=== PATIENT | male | born 1940 | race Caucasian/White ===

== ENCOUNTER 2021-06-07 14:54 | Emergency (ER) | payer MEDICARE ==
[~2021-06-07] VITALS: Ht 177.8 cm; Wt 100.2 kg
[2021-06-07 15:15] VITALS: BP 130/74
--- NOTE | 2021-06-07 16:05 | EKG ---
[address] [address] Test Date: 2021-06-07 Test Time: 15:57:25 Pat Name: JULY GOODWIN Department: Room: Gender: M Certified Pediatric Nurse Practitioner: DIONNA : 1940 Requested By: RACHEL MARQUES Order Number: [id number] Reading MD: Cam Villareal Measurements Intervals [place] Rate: 75 P: 52 VA: 160 QRS: -48 QRSD: 108 T: 44 QT: 398 QTc: 447 Interpretive Statements SINUS RHYTHM ABNORMAL LEFT AXIS DEVIATION LEFT ANTERIOR FASCICULAR BLOCK ABNORMAL ECG RI6.02 No previous ECG available for comparison Electronically Signed On 06-07-2021 16:17:22 [employer] CASE [employer] by Cam Villareal
--- NOTE | 2021-06-07 16:07 | PHYS DOC ---
Past History Past Surgical History: No Surgical History General Adult EDM: Chief Complaint: WEAKNESS/GENERALIZED HPI: HPI: Patient is a 80-year-old male brought in by EMS for altered mental status. Per patient's he is normally ANO x1. States she heard a noise at 2 AM and found him sitting in the bathroom and states he fell. Unknown if there is any head injury. Around 0930 and noticed some facial droop that has improved. Patient is in town from [place] states he has been a little bit more disoriented and fatigued. Review of Systems: Review of Systems: All other systems within normal limits except for as noted in the HPI Allergies: Allergies: Allergies Coded Allergies Type Severity Reaction Last Updated Verified No Known Drug Allergies 06/07/21 No Physical Exam: PE: Constitutional: Well developed, well nourished, no acute distress, non-toxic appearance. [] HENT: Normocephalic, atraumatic, bilateral external ears normal, nose normal. [] Eyes: PERRLA, conjunctiva normal, no discharge. [] Neck: No rigidity, supple, no stridor. [] Cardiovascular: Regular rate and rhythm, brisk cap refill [] Lungs & Thorax: Non labored symmetric respirations, no tachypnea or respiratory distress [] Abdomen: Soft, nondistended. Skin: Warm, dry, no erythema, no rash. [] Back: Unremarkable Extremities: No deformities, range of motion grossly intact, no lower extremity edema [] Neurologic: Alert and oriented X 3, no focal deficits noted. [] Psychologic: Affect normal, judgement normal, mood normal. [] Current Patient Data: Vital Signs: Vital Signs Date Time Temp Pulse Resp B/P (MAP) Pulse Ox O2 Delivery O2 Flow Rate FiO2 06/07/21 15:15 98.6 65 16 130/74 (92) 95 EKG: EKG: [] Radiology/Procedures: Radiology/Procedures: [address] [address] IMAGING REPORT Signed PATIENT: JULY GOODWIN ACCOUNT: [id number] : 1940 LOCATION: ER AGE: 80 SEX: M EXAM STATUS: REG ER ORD. PHYSICIAN: RACHEL MARQUES MD REASON: FALL, HIT HEAD, CONFUSED, DROOPING ON LEFT SIDE OF FACE PROCEDURE: CT HEAD WO CONTRAST CT head without contrast: Reason for examination: Fell and hit head. Confusion. Drooping on left side of face. Helical images were obtained through the brain with no contrast administered. Reconstruction was performed in sagittal and coronal planes. Exposure: One or more of the following individualized dose reduction techniques were utilized for this examination: 1. Automated exposure control 2. Adjustment of the mA and/or kV according to patient size 3. Use of iterative reconstruction technique. Ventricular systems are prominent but symmetric and consistent with patient's advanced age and generalized cerebral atrophy. There are patchy deep white matter changes in the frontal and parietal lobes consistent with microvascular ischemic change. There is no evidence of acute hemorrhage, infarct, mass or edema. Note is made of some calcification along the falx. No abnormalities of seen at the orbits. The paranasal sinuses and mastoid air cells are clear. No acute abnormality seen in the skull. 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 No evidence of intracranial hemorrhage or acute intracranial abnormality. Electronically signed by: Sushma Saavedra MD (06/07/2021 4:34 PM) [facility] DICTATED AND SIGNED BY: SUSHMA SAAVEDRA MD DATE: 06/07/211616 CC: RACHEL MARQUES MD; PCP,NO ~MTH0 0 [][place] [address] IMAGING REPORT Signed PATIENT: JULY GOODWIN ACCOUNT: [id number] : 1940 LOCATION: ER AGE: 80 SEX: M EXAM STATUS: REG ER ORD. PHYSICIAN: RACHEL MARQUES MD REASON: fall PROCEDURE: PELVIS EXAMINATION: Chest and pelvis radiographs. VIEWS: Single view of the chest and 2 views of the pelvis. COMPARISON: None INDICATION:80 years, Male, fall. FINDINGS: Chest: Normal cardiomediastinal silhouette. No focal consolidation. No pleural effusion or pneumothorax. No acute osseous process. 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 Pelvis: Intact bilateral hips prosthesis without hardware failure or loosening. No acute fracture, dislocation or subluxation. No soft tissue swelling. IMPRESSION: 1. No acute cardiopulmonary abnormality. 2. No acute osseous process in the pelvis. Electronically signed by: Beba Jimenez MD (06/07/2021 5:35 PM) [id number] DICTATED AND SIGNED BY: BEBA JIMENEZ MD DATE: 06/07/211731 CC: RACHEL MARQUES MD; PCP,NO ~MTH0 0 Heart Score: C/O Chest Pain: No Risk Factors: Risk Factors: DM, Current or recent (<one month) smoker, HTN, HLP, family history of CAD, obesity. Risk Scores: Score 0 - 3: 2.5% MACE over next 6 weeks - Discharge Home Score 4 - 6: 20.3% MACE over next 6 weeks - Admit for Clinical Observation Score 7 - 10: 72.7% MACE over next 6 weeks - Early Invasive Strategies Course & Med Decision Making: Course & Med Decision Making Pertinent Labs and Imaging studies reviewed. (See chart for details) [] Khang Disclaimer: Khang Disclaimer: This electronic medical record was generated, in whole or in part, using a voice recognition dictation system. Departure Departure: Impression: Primary Impression: Fatigue Additional Impressions: Fall COVID Disposition: HOME / SELF CARE / HOMELESS Condition: STABLE Referrals: PCP,NO (PCP) Patient Instructions: Viral Syndrome RACHEL MARQUES MD Jun 07, 2021 16:07
[2021-06-07 16:26] LABS: CALCIUM 8.2 mg/dL (8.5-10.1); CREATININE 1.1 mg/dL (0.7-1.3); GFR 64.4; POTASSIUM 4.4 mmol/L (3.5-5.1)
[2021-06-07 16:29] LABS: BASO % 1 % (0-3); EOS % 0 % (0-3); HEMATOCRIT 42.2 % (39.0-53.0); HEMOGLOBIN 14.2 g/dL (13.0-17.5); LYMPH # 0.8 x10^3/uL (1.0-4.8); LYMPH % 14 % (24-48); MEAN CORPUSCULAR HEMOGLOBIN 31 pg (25-35); MEAN CORPUSCULAR HGB CONC 34 g/dL (31-37); MEAN CORPUSCULAR VOLUME 93 fL (79-100); MONO # 1.1 x10^3/uL (0.0-1.1); MONO % 20 % (0-9); NEUT # 3.8 x10^3uL (1.8-7.7); NEUT % 66 % (31-73); PLATELET COUNT 156 x10^3/uL (140-400); RED BLOOD COUNT 4.53 x10^6/uL (4.30-5.70); RED CELL DISTRIBUTION WIDTH 13.3 % (11.5-14.5); WHITE BLOOD COUNT 5.8 x10^3/uL (4.0-11.0)
--- NOTE | 2021-06-07 16:37 | RAD ---
CT head without contrast: Reason for examination: Fell and hit head. Confusion. Drooping on left side of face. Helical images were obtained through the brain with no contrast administered. Reconstruction was perf ormed in sagittal and coronal planes. Exposure: One or more of the following individualized dose reduction techniques were utilized for thi s examination: 1. Automated exposure control 2. Adjustment of the mA and/or kV according to patient size 3. Use of iterative reconstruction technique. Ventricular systems are prominent but symmetric and consistent with patient's advanced age and genera lized cerebral atrophy. There are patchy deep white matter changes in the frontal and parietal lobes consistent with microvascular ischemic change. There is no evidence of acute hemorrhage, infarct, mas s or edema. Note is made of some calcification along the falx. No abnormalities of seen at the orbits . The paranasal sinuses and mastoid air cells are clear. No acute abnormality seen in the skull. 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 No evidence of intracranial hemorrhage or acute intracranial abnormality. Electronically signed by: Sushma Hernandez MD (06/07/2021 4:34 PM) DAYANNA
[2021-06-07 16:39] LABS: ALBUMIN 3.8 g/dL (3.4-5.0); ALBUMIN/GLOBULIN RATIO 1.3 (1.0-1.7); MAGNESIUM 2.3 mg/dL (1.8-2.4); PHOSPHORUS 3.8 mg/dL (2.6-4.7); TOTAL BILIRUBIN 0.4 mg/dL (0.2-1.0); TOTAL PROTEIN 6.8 g/dL (6.4-8.2)
[2021-06-07 16:44] LABS: INFLUENZA A PATIENT NEGATIVE (NEGATIVE); INFLUENZA B PATIENT NEGATIVE (NEGATIVE)
[2021-06-07 17:14] LABS: BILIRUBIN,URINE NEG (NEG); CLARITY,URINE CLEAR; COLOR,URINE YELLOW; GLUCOSE,URINE NEG (NEG); NITRITE,URINE NEG (NEG); UROBILINOGEN,URINE 0.2 mg/dL (0.2 mg/dL)
[2021-06-07 17:15] LABS: BACTERIA,URINE 0 /HPF (0-FEW); RBC,URINE OCC /HPF (0-2); WBC,URINE 0 /HPF (0-4)
--- NOTE | 2021-06-07 17:38 | RAD ---
EXAMINATION: Chest and pelvis radiographs. VIEWS: Single view of the chest and 2 views of the pelvis. COMPARISON: None INDICATION:80 years, Male, fall. FINDINGS: Chest: Normal cardiomediastinal silhouette. No focal consolidation. No pleural effusion or pneumothor ax. No acute osseous process. 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 Pelvis: Intact bilateral hips prosthesis without hardware failure or loosening. No acute fracture, di slocation or subluxation. No soft tissue swelling. IMPRESSION: 1. No acute cardiopulmonary abnormality. 2. No acute osseous process in the pelvis. Electronically signed by: Ruth Jimenez MD (06/07/2021 5:35 PM) [id number]
== END 2021-06-07 18:03 | disposition home or self-care (01) ==
LOC: ER 15:03
DX: U07.1 COVID-19 (principal); R53.83 Other fatigue; W18.39XA Other fall on same level, initial encounter; Y93.89 Activity, other specified; Y92.89 Other specified places as the place of occurrence of the external cause; Y99.8 Other external cause status
CPT/HCPCS: 70450; 71045; 72170; 80053; 81001; 82803; 83605; 83735; 83880; 84100; 84484; 85025; 85610; 87426; 87804; 93005; 99285